=== PATIENT | female | born 1935 | race Caucasian/White ===

== ENCOUNTER 2020-04-13 16:56 | Outpatient (CLI) | payer MEDICARE, OTHER, SELFPAY ==
--- NOTE | 2020-04-13 | USCV_ITS ---
Tiana Dunlap Age: 85 Gender: F : 1935 Exam Date: 04/13/2020 17:19 Ordering Phys: Dolores Baker DO Technologist: KELLY SAUCEDA Exam Location: [facility] – [place]_ Indication: LOCALIZED RIGHT FOOT SWELLING PROCEDURES: Venous duplex imaging was performed in only the right lower extremity. The following venous structures were evaluated: common femoral vein, profunda vein, proximal portion of the greater saphenous vein, superficial femoral vein, and the popliteal vein. In addition, the posterior tibial and peroneal trunk were evaluated. Serial compression, augmentation maneuvers, and spectral Doppler flow evaluation were performed. FINDINGS: Normal 2-D Doppler and augmentation and compressibility throughout the lower extremity venous structures. Additional imaging through the proximal calf veins also reveals no thrombus. Limited evaluation of the greater saphenous vein is patent with no thrombus. Complex cystic mass with low level echos and no vascularity measuring 4.6 x 2.0 cm in the right popliteal fossa. CONCLUSIONS No DVT right lower extremity. Right popliteal fossa Sandra's cyst. Dr. Stefany Juarez DO (Electronically Signed) Final Date: 14 April 2020 07:32 S
[2020-04-13 17:45] LABS: Basophils # 0.1 10^3/uL (0.0-0.1); Basophils % 1.2 %; Eosinophils # 0.3 10^3/uL (0.0-0.8); Eosinophils % 3.5 %; Hematocrit 35.9 % (37.0-47.0); Hemoglobin 11.2 g/dL (11.5-15.3); Lymphocytes # 1.9 10^3/uL (0.8-4.8); Lymphocytes % 19.8 %; Mean Corpuscular HGB Conc 31.2 g/dL (30.0-36.0); Mean Corpuscular Hemoglobin 26.6 pg (28.0-34.0); Mean Corpuscular Volume 85.3 fL (81-99); Mean Platelet Volume 9.5 fL (7.4-10.4); Monocytes # 1.3 10^3/uL (0.2-0.9); Monocytes % 14.4 %; Neutrophils # 5.7 10^3/uL (1.8-7.7); Neutrophils % 60.8 %; Nucleated Red Blood Cells % 0 %; Platelet Count 266 10^3/cmm (130-400); Red Blood Count 4.21 10^6/uL (4.1-5.3); Red Cell Distribution Width 17.7 % (12.1-15.1); White Blood Count 9.3 10^3/uL (4.0-10.0)
[2020-04-13 17:58] LABS: INR 1.76 (0.8-1.2)
[2020-04-13 18:01] LABS: D Dimer <= 0.27 ug/mIFEU (0-0.59)
[2020-04-13 18:03] LABS: Alanine Aminotransferase 18 U/L (0-33); Albumin Level 4.6 g/dL (3.5-5.2); Alkaline Phosphatase 82 IU/L (35-105); Anion Gap 18.4 (5-19); Aspartate Amino Transferase 22 U/L (0-32); Blood Urea Nitrogen 18 mg/dL (8-23); Calcium 9.6 mg/dL (8.5-10.5); Carbon Dioxide 25 mmol/L (22-29); Chloride 97 mmol/L (98-107); Globulin 2.5 g/dL (1.3-4.6); Glucose 103 mg/dL (65-115); Osmolality Calculated 281 mOsm/kg (285-295); Potassium 3.4 mmol/L (3.5-5.1); Sodium 137 mmol/L (136-145); Total Bilirubin 0.4 mg/dL (0.15-1.2); Total Protein 7.1 g/dL (6.6-8.7)
== END 2020-04-13 16:57 | disposition home or self-care (01) ==
LOC: RAD 17:03
PROVIDERS: PCP Family Medicine; Visit Provider Family Medicine
DX: R22.41 Localized swelling, mass and lump, right lower limb (principal); L53.9 Erythematous condition, unspecified; R23.3 Spontaneous ecchymoses; M71.21 Synovial cyst of popliteal space [Baker], right knee
CPT/HCPCS: 36415; 80053; 85025; 85378; 85610; 93971

== ENCOUNTER 2022-03-14 12:58 | Outpatient (CLI) | payer MEDICARE, OTHER, SELFPAY ==
--- NOTE | 2022-03-14 13:14 | MM_ITS ---
WS: [id number] BILATERAL 3D TOMOSYNTHESIS DIGITAL SCREENING MAMMOGRAPHY WITH CAD CLINICAL INFORMATION: SCREENING HISTORY: Screening mammogram. No current complaints. COMPARISON: October 08, 2020 TECHNIQUE: Bilateral CC and MLO views. FINDINGS: The breasts are composed of heterogeneous fibroglandular density tissue, which can limit the detectio n of small underlying mass lesions. Punctate and lucent centered calcifications. Vascular calcificati on. Dense breast tissue upper outer RIGHT breast with architectural distortion is unchanged since 201 9.. No suspicious mass, asymmetry, or suspicious calcifications. No evidence of malignancy. MM/[id number] IMPRESSION: BI-RADS: 2-Benign FOLLOW UP: 1 Year Follow-up Recommend return to annual screening mammography.
== END 2022-03-14 12:59 | disposition home or self-care (01) ==
LOC: RAD 13:01
PROVIDERS: PCP Family Medicine; Visit Provider Family Medicine
DX: Z12.31 Encounter for screening mammogram for malignant neoplasm of breast (principal)
CPT/HCPCS: 77063; 77067

== ENCOUNTER 2023-03-23 10:59 | Outpatient (CLI) | payer MEDICARE, OTHER, SELFPAY ==
--- NOTE | 2023-03-23 11:11 | MM_ITS ---
WS: [id number] VIEWS: MLO and CC views both breasts. 3D digital tomosynthesis is also included in this exam. Comparison made with prior exam of 09/24/2019, 10/08/2020, 03/14/2022.. Findings: There was no sign of mass, architectural distortion or suspicious calcification in either breast. Sta ble appearing nodular densities in both breasts.The breasts are extremely dense which lowers the sens itivity of mammography. MM/[id number] Impression: BI-RADS: 2 Benign finding FOLLOW-UP: 1 Year Follow-up This mammogram was also analyzed by the Computer Aided Detection System R2 Imag e Direct Support Specialist.
== END 2023-03-23 11:00 | disposition home or self-care (01) ==
LOC: RAD 11:05
PROVIDERS: PCP Family Medicine; Visit Provider Family Medicine
DX: Z12.31 Encounter for screening mammogram for malignant neoplasm of breast (principal)
CPT/HCPCS: 77063; 77067

== ENCOUNTER 2023-07-14 13:01 | Outpatient (CLI) | payer MEDICARE, OTHER, SELFPAY ==
--- NOTE | 2023-07-14 13:14 | CT_ITS ---
WS: [id number] CT NECK TECHNIQUE: Contrast-enhanced CT of the neck with coronal and sagittal reformatted images. CLINICAL INFORMATION: MALIGNANT NEOPLASM OF MAJOR SALIVARY GLAND, UNSPECIFIED COMPARISON: 2016 CT and PET/CT DLP: 176.[address] scans at [facility] use at least one of these dose optimization techniques: automated e xposure control; mA and/or kV adjustment per patient size (includes targeted exams where dose is matc hed to clinical indication); or iterative reconstruction. FINDINGS: Extensive dental artifact results in beam hardening which limits evaluation. ] Prior reported postoperative changes resection of a RIGHT parotid tumor. Palpable marker overlying th e RIGHT parotid gland today. Dental artifact significantly degrades images. No definite visualized en hancing mass or lesion deep to the palpable marker. Normal RIGHT parotid gland enhancement. LEFT paro tid gland is normal. Normal submandibular glands. Normal posterior nasopharynx and parapharyngeal fat . No evidence of supraglottic or glottic mass. Normal subglottic airway. No cervical lymphadenopathy. Mastoid air cells are well aerated. Paranasal sinuses are well aerated. Low-attenuation bilateral thy roid nodules largest on the RIGHT measuring 12 mm. IMPRESSION: 1. Palpable marker overlying the RIGHT parotid gland. Dental artifact significantly degrades images however no definite evidence of recurrent parotid mass or lesion in this location. This could be furt her evaluated with ultrasound if persistent concern. 2. LEFT parotid gland is normal. 3. Submandibular glands are normal. 4. No cervical lymphadenopathy. 5. Moderate RIGHT carotid bulb calcification with mild stenosis. Carotids could be further evaluated with ultrasound or CTA. 6. No other suspicious findings.
[2023-07-14 13:47] LABS: Blood Urea Nitrogen 21 mg/dL (8-23)
[2023-07-14] MEDS: iohexol 350 mg/mL 500 mL Btl (per mL) IV (14:03)
== END 2023-07-14 13:02 | disposition home or self-care (01) ==
PROVIDERS: PCP Family Medicine; Visit Provider Otolaryngology
DX: C08.9 Malignant neoplasm of major salivary gland, unspecified (principal); I65.21 Occlusion and stenosis of right carotid artery
CPT/HCPCS: 70491; 82565; 84520; Q9967